=== PATIENT | female | born 1975 | race Caucasian/White ===

== ENCOUNTER 2022-01-08 21:44 | Inpatient (IN) | payer BC ==
[~2022-01-08] VITALS: Ht 167 cm; Wt 86.0 kg
[2022-01-08 22:38] LABS: BILIRUBIN,URINE NEGATIVE (NEGATIVE); CLARITY,URINE CLEAR; COLOR,URINE YELLOW; GLUCOSE, URINE (UA) NEGATIVE (NEGATIVE); KETONES,URINE NEGATIVE (NEGATIVE); LEUKOCYTE ESTERASE ,URINE NEGATIVE (NEGATIVE); NITRITE,URINE NEGATIVE (NEGATIVE); PROTEIN,URINE TRACE (NEGATIVE)
[2022-01-08 22:45] LABS: BACTERIA,URINE FEW /HPF
[2022-01-08] MEDS ORDERED: FAMOTIDINE 20MG/2ML IV (PEPCID) IVP ONE (23:30)
[2022-01-08] MEDS ORDERED: ONDANSETRON 4 MG/2 ML (SDV) Z0FRAN IVP ONE (23:30)
[2022-01-08] MEDS ORDERED: LACTATED RINGERS 1,000 ML IV ONE (23:30)
[2022-01-08] MEDS ORDERED: ANTACID SUSP 30 ML UDC (MYLANTA) PO ONE (23:30)
[2022-01-08] MEDS ORDERED: LIDOCAINE 2% VISCOUS 15 ML UDC PO ONE (23:30)
[2022-01-09] VITALS (15 sets, daily range): BP systolic 115–163; BP diastolic 66–95
[2022-01-09] MEDS ORDERED: fentaNYL INJ 100 MCG/2 ML AMP IVP ONE ×2 (00:30→02:45)
[2022-01-09 01:04] LABS: BASOPHILS % (AUTO) 0 % (0-10); EOSINOPHILS % (AUTO) 0 % (0-10); HEMATOCRIT 32 % (35-52); HEMOGLOBIN 11.1 g/dL (11.5-16.0); LYMPHOCYTES # (AUTO) 1.1 10^3/uL (1.0-4.0); LYMPHOCYTES % (AUTO) 8 % (12-44); MEAN CORPUSCULAR HEMOGLOBIN 31 pg (25-34); MEAN CORPUSCULAR HGB CONC 35 g/dL (32-36); MEAN CORPUSCULAR VOLUME 90 fL (80-99); MONOCYTES # (AUTO) 0.4 10^3/uL (0.0-1.0); MONOCYTES % (AUTO) 3 % (0-12); NEUTROPHILS # (AUTO) 11.5 10^3/uL (1.8-7.8); NEUTROPHILS % (AUTO) 88 % (42-75); PLATELET COUNT 272 10^3/uL (130-400)
[2022-01-09 01:17] LABS: POTASSIUM 4.3 MMOL/L (3.6-5.0)
[2022-01-09 01:19] LABS: CALCIUM 8.8 MG/DL (8.5-10.1)
[2022-01-09 01:20] LABS: TOTAL PROTEIN 6.6 GM/DL (6.4-8.2)
[2022-01-09 01:22] LABS: BILIRUBIN,TOTAL 1.4 MG/DL (0.1-1.0)
[2022-01-09 01:23] LABS: CREATININE SERUM 0.96 MG/DL (0.60-1.30)
[2022-01-09] MEDS ORDERED: HOLD METFORMIN - RECEIVED CONTRAST 20 ML VIAL IV SCH (01:45)
[2022-01-09] MEDS ORDERED: NS 100 ML (IVPB) BAG IV ONE (01:45)
[2022-01-09] MEDS ORDERED: CATHETER FLUSH 10 ML SYR IV PRN (01:45)
[2022-01-09] MEDS ORDERED: IOHEXOL 350 MG/ML 100 ML (OMNIPAQUE 350) VIAL IV ONE (01:45)
--- NOTE | 2022-01-09 03:18 | ED Abdominal Pain ---
General Chief Complaint: Abdominal/GI Problems Stated Complaint: ABD PAIN Nursing Triage Note: Pt to ER with chief complaint of medial abdominal pain. Pt reports that 2 hours ago she suddenly began having abdominal pain and "nothing makes it better". Pt also reports that she has thrown up 4 times from the pain and states this has happened before 2 times previously and it was gas both times. Source of Information: Patient Exam Limitations: No Limitations History of Present Illness Date Seen by Provider: January 08, 2022 Time Seen by Provider: 21:50 Initial Comments This 46-year-old young lady presents to the emergency room with upper abdominal pain, nausea and vomiting. She is somewhat in distress on evaluation. She has had 3 episodes of similar symptoms in the past but, but this is the most severe episode. Symptoms seem to start about an hour after eating. She denies any urinary problems. Allergies and Home Medications Allergies Coded Allergies: cefprozil (Verified Allergy, Unknown, 01/08/22) Patient Home Medication List Home Medication List Reviewed: Yes Review of Systems Review of Systems Constitutional: no symptoms reported EENTM: No Symptoms Reported Respiratory: No Symptoms Reported Cardiovascular: No Symptoms Reported Gastrointestinal: See HPI Genitourinary: No Symptoms Reported Musculoskeletal: no symptoms reported Skin: no symptoms reported Psychiatric/Neurological: No Symptoms Reported Endocrine: No Symptoms Reported Past Xgkvkbz-[id number]-Ufdpds Hx Patient Social History Tobacco Use?: No Smoking Status: Never a Smoker Smokeless Tobacco Frequency: Never a User Use of E-Cig and/or Vaping dev: No Use of E-Cig and/or Vaping Prosper: Never a User Substance use?: No Alcohol Use?: No Pt feels they are or have been: No Immunizations Up To Date Influenza Vaccine Up-to-Date: No; Not Current Past Medical History Surgery/Hospitalization HX: bladder enlargement Surgeries: No Respiratory: No Cardiac: No Neurological: No : No Last Menstrual Period: Dec 11, 2021 Genitourinary: No Gastrointestinal: No Musculoskeletal: No Endocrine: No HEENT: No Cancer: No Psychosocial: No Physical Exam Vital Signs Vital Signs - First Documented 01/08/22 22:19 Temp 37.1 Pulse 70 Resp 20 B/P (MAP) 146/72 (96) Pulse Ox 98 O2 Delivery Room Air Capillary Refill : Less Than 3 Seconds Height/Weight/BMI Height: '" Weight: lbs. oz. kg; 27.00 BMI Method: General Appearance: WD/WN, moderate distress HEENT: PERRL/EOMI, normal ENT inspection Neck: normal inspection Respiratory: lungs clear, normal breath sounds, no respiratory distress Cardiovascular: regular rate, rhythm, no edema, no murmur Gastrointestinal: normal bowel sounds, soft, tenderness (Tenderness throughout the upper abdomen and most intense in the epigastrium) Extremities: normal inspection, no pedal edema Neurologic/Psychiatric: no motor/sensory deficits, alert, normal mood/affect, oriented x 3 Skin: normal color, warm/dry Progress/Results/Core Measures Results/Orders Lab Results Laboratory Tests Test 01/08/22 22:30 01/09/22 01:00 Range/Units Urine Color YELLOW Urine Clarity CLEAR Urine pH 8.0 5-9 Urine Specific [place] 1.015 L 1.016-1.022 Urine Protein TRACE H NEGATIVE Urine Glucose (UA) NEGATIVE NEGATIVE Urine Ketones NEGATIVE NEGATIVE Urine Nitrite NEGATIVE NEGATIVE Urine Bilirubin NEGATIVE NEGATIVE Urine Urobilinogen 1.0 < = 1.0 MG/DL Urine Leukocyte Esterase NEGATIVE NEGATIVE Urine RBC (Auto) 2+ H NEGATIVE Urine RBC 10-25 H /HPF Urine WBC 5-10 H /HPF Urine Squamous Epithelial Cells 5-10 /HPF Urine Renal Epithelial Cells NONE /HPF Urine Crystals NONE /LPF Urine Bacteria FEW H /HPF Urine Casts NONE /LPF Urine Mucus SMALL H /LPF Urine Culture Indicated YES White Blood Count 13.0 H 4.3-11.0 10^3/uL Red Blood Count 3.55 L 3.80-5.11 10^6/uL Hemoglobin 11.1 L 11.5-16.0 g/dL Hematocrit 32 L 35-52 % Mean Corpuscular Volume 90 80-99 fL Mean Corpuscular Hemoglobin 31 25-34 pg Mean Corpuscular Hemoglobin Concent 35 32-36 g/dL Red Cell Distribution Width 12.9 10.0-14.5 % Platelet Count 272 130-400 10^3/uL Mean Platelet Volume 9.0 9.0-12.2 fL Immature Granulocyte % (Auto) 0 % Neutrophils (%) (Auto) 88 H 42-75 % Lymphocytes (%) (Auto) 8 L 12-44 % Monocytes (%) (Auto) 3 0-12 % Eosinophils (%) (Auto) 0 0-10 % Basophils (%) (Auto) 0 0-10 % Neutrophils # (Auto) 11.5 H 1.8-7.8 10^3/uL Lymphocytes # (Auto) 1.1 1.0-4.0 10^3/uL Monocytes # (Auto) 0.4 0.0-1.0 10^3/uL Eosinophils # (Auto) 0.0 0.0-0.3 10^3/uL Basophils # (Auto) 0.0 0.0-0.1 10^3/uL Immature Granulocyte # (Auto) 0.1 0.0-0.1 10^3/uL Sodium Level 136 135-145 MMOL/L Potassium Level 4.3 3.6-5.0 MMOL/L Chloride Level 104 98-107 MMOL/L Carbon Dioxide Level 19 L 21-32 MMOL/L Anion Gap 13 5-14 MMOL/L Blood Urea Nitrogen 8 7-18 MG/DL Creatinine 0.96 0.60-1.30 MG/DL Estimat Glomerular Filtration Rate 73 BUN/Creatinine Ratio 8 Glucose Level 137 H 70-105 MG/DL Calcium Level 8.8 8.5-10.1 MG/DL Corrected Calcium 8.8 8.5-10.1 MG/DL Total Bilirubin 1.4 H 0.1-1.0 MG/DL Aspartate Amino Transf (AST/SGOT) 228 H 5-34 U/L Alanine Aminotransferase (ALT/SGPT) 138 H 0-55 U/L Alkaline Phosphatase 75 40-136 U/L C-Reactive Protein High Sensitivity 0.26 0.00-0.50 MG/DL Total Protein 6.6 6.4-8.2 GM/DL Albumin 4.0 3.2-4.5 GM/DL Lipase 20 8-78 U/L My Orders Orders - RONY NEWBERRY MD Ua Culture If Indicated (01/08/22 21:50) Urine Culture (01/08/22 22:30) Ondansetron Injection (Zofran Injectio (01/08/22 23:30) Cbc With Automated Diff (01/08/22 23:24) Comprehensive Metabolic Panel (01/08/22 23:24) Lipase (01/08/22 23:24) Ed Iv/Invasive Line Start (01/08/22 23:24) Lactated Ringers (Lr 1000 Ml Iv Solution (01/08/22 23:30) Lidocaine 2% Viscous 15 Ml (Xylocaine Vi (01/08/22 23:30) Antacid Suspension (Mylanta Suspension (01/08/22 23:30) Famotidine Injection (Pepcid Injection) (01/08/22 23:30) Hs C Reactive Protein (01/09/22 00:20) Fentanyl Inj (Sublimaze Injection) (01/09/22 00:30) Ct Abdomen/Pelvis W (01/09/22 01:29) Iohexol Injection (Omnipaque 350 Mg/Ml 1 (01/09/22 01:45) Received Contrast (Hold Metformin- Contr (01/09/22 01:45) Sodium Chloride Flush (Catheter Flush Sy (01/09/22 01:45) Ns (Ivpb) (Sodium Chloride 0.9% Ivpb Bag (01/09/22 01:45) Fentanyl Inj (Sublimaze Injection) (01/09/22 02:45) Ciprofloxacin Iv 400mg/200ml (Cipro Iv S (01/09/22 03:30) Medications Given in ED Current Medications Medications Dose Ordered Sig/Deandra Route Start Time Stop Time Status Last Admin Dose Admin Al Hydrox/Mg Hydrox/Simethicone 30 ml ONCE ONCE PO 01/08/22 23:30 01/08/22 23:31 DC 01/08/22 23:48 30 ML Famotidine 20 mg ONCE ONCE IVP 01/08/22 23:30 01/08/22 23:31 DC 01/08/22 23:47 20 MG Fentanyl Citrate 50 mcg ONCE ONCE IVP 01/09/22 00:30 01/09/22 00:31 DC 01/09/22 00:51 50 MCG Fentanyl Citrate 50 mcg ONCE ONCE IVP 01/09/22 02:45 01/09/22 02:46 DC 01/09/22 02:54 50 MCG Iohexol 100 ml ONCE ONCE IV 01/09/22 01:45 01/09/22 01:46 DC 01/09/22 01:49 97 ML Lactated Ringer's 1,000 ml @ 0 mls/hr Q0M ONCE IV 01/08/22 23:30 01/08/22 23:31 DC 01/08/22 23:47 1,000 MLS/HR Lidocaine HCl 15 ml ONCE ONCE PO 01/08/22 23:30 01/08/22 23:31 DC 01/08/22 23:48 15 ML Ondansetron HCl 8 mg ONCE ONCE IVP 01/08/22 23:30 01/08/22 23:31 DC 01/08/22 23:47 8 MG Sodium Chloride 10 ml NEEDED PRN IV 01/09/22 01:45 01/09/22 01:49 10 ML Sodium Chloride 100 ml ONCE ONCE IV 01/09/22 01:45 01/09/22 01:46 DC 01/09/22 01:49 80 ML Vital Signs/I&O 01/08/22 22:19 Temp 37.1 Pulse 70 Resp 20 B/P (MAP) 146/72 (96) Pulse Ox 98 O2 Delivery Room Air Blood Pressure Mean: 96 Progress Progress Note : Progress Note Patient was treated with Zofran and a liter of LR. Pain was treated with GI cocktail. There is no improvement after GI cocktail. Pain was further treated with fentanyl. Mild leukocytosis was noted. Risks and benefits of CT scan were reviewed with the patient. She elected to proceed with a CT scan which d emonstrated cholelithiasis and possible inflammatory changes to the colon. Based on symptom presentation, she likely is suffering from biliary colic. Urinary tract infection was also identified by urinalysis. Case was discussed with Dr. Thorne. Given the severity of her symptoms and recurrent nature, admission for surgery was deemed most appropriate. Patient elects to proceed with admission and surgery later today. She was treated with Cipro in the ER. Further treatment with Cipro and Flagyl will be ordered on admission. Diagnostic Imaging Diagonstic Imaging: CT Plain Films/CT/US/NM/MRI: abdomen, pelvis Comments CT abdomen and pelvis with contrast viewed by me and stat rad report reviewed. There is a dilated gallbladder with cholelithiasis evident. Questionable inflammatory changes to the colon. See report for details. Departure Communication (Admissions) Time/Spoke to Admitting Phy: 03:05 Dr. Thorne Impression Primary Impression: Cholelithiasis Qualified Codes: K80.20 - Calculus of gallbladder without cholecystitis without obstruction Additional Impressions: Upper abdominal pain Urinary tract infection Qualified Codes: N39.0 - Urinary tract infection, site not specified; R31.9 - Hematuria, unspecified Nausea & vomiting Qualified Codes: R11.2 - Nausea with vomiting, unspecified Elevated liver transaminase level Disposition: ADMITTED INPATIENT Condition: Improved Admissions Decision to Admit Reason: Admit from ER (General) Decision to Admit/Date: January 09, 2022 Time/Decision to Admit Time: 03:05 Departure-Patient Inst. Referrals: JESSIE BAILEY DO (PCP/Family) Primary Care Physician Copy Copies To 1: JESSIE BAILEY JOSHUA T MD January 09, 2022 03:18
[2022-01-09] MEDS ORDERED: CIPROFLOXACIN IV 400MG/200ML 200 ML IV ONE (03:30)
[2022-01-09] MEDS ORDERED: ONDANSETRON 4 MG/2 ML (SDV) Z0FRAN IV PRN (04:45)
[2022-01-09] MEDS ORDERED: morphine INJ 4 MG/ML 1 ML (VIAL/SYRINGE) IV PRN (04:45)
[2022-01-09] MEDS ORDERED: metroNIDAZOLE 500 MG/100 ML IVPB (PRE-MIX) IV SCH (05:00)
[2022-01-09] MEDS: fentaNYL INJ 100 MCG/2 ML AMP IV PRN ×2 (05:15→15:44)
[2022-01-09] MEDS: LACTATED RINGERS 1,000 ML IV SCH ×2 (05:15→12:41)
--- NOTE | 2022-01-09 06:11 | Diagnostic Imaging Report ---
PROCEDURE: CT abdomen and pelvis with contrast. TECHNIQUE: Multiple contiguous axial images were obtained through the abdomen and pelvis after administration of intravenous contrast. Auto Exposure Controls were utilized during the CT exam to meet ALARA standards for radiation dose reduction. All CT scans use one or more of the following dose optimizing techniques: automated exposure control, MA and/or KvP adjustment based on patient size and exam type or iterative reconstruction. INDICATION: Abdominal pain, elevated liver enzymes and leukocytosis. FINDINGS: The heart size is normal. The lung bases are clear. The liver is normal in size without focal lesions. There is no biliary ductal dilatation. There is cholelithiasis. Spleen is normal. Pancreas and adrenal glands are unremarkable. There is a tiny nonobstructing right renal calculus. Left kidney is normal. The aorta is nonaneurysmal. Bowel gas pattern is nonspecific. There is mucosal thickening in the transverse colon, descending colon and sigmoid colon. There is no free air. There is no ascites. There are no focal inflammatory changes. The osseous structures are unremarkable. IMPRESSION: Mucosal thickening of the transverse colon, descending colon and sigmoid colon. This may be due to underdistention although colitis cannot be excluded. Recommend clinical correlation. Cholelithiasis without gross findings to suggest cholecystitis. Small hiatal hernia. 2 mm nonobstructing right renal calculus. Dictated by: Dictated on workstation # [id number]
--- NOTE | 2022-01-09 07:56 | History & Physical-Surgical ---
History of Present Illness History of Present Illness Reason for visit/HPI CC: epigastric pain. 46 year old female with epigastric pain started 7 pm last night. sever pain. Having nausea and emesis. Has had 2 different prior episodes. Since worse and constants since started this time came to ed to be further evaluated. Ct scan showing cholelithiasis, has thickening of some of transverse and left colon likely underdistention. Date of Admission January 09, 2022 at 03:21 Date Seen by a Provider: January 09, 2022 Time Seen by a Provider: 07:53 I consulted on this patient on 01/09/22 07:50 Attending Physician Marlin Thorne DO Admitting Physician Stefanie Stone DO Consult Allergies and Home Medications Allergies Coded Allergies: cefprozil (Verified Allergy, Unknown, 01/08/22) Patient Home Medication List Home Medication List Reviewed: Yes Past Rbwiwkt-Ihqcvs-Tciyfw Hx Patient Social History Smoking Status: Never a Smoker Alcohol Use?: No Have you traveled recently?: No Surgeries History of Surgeries: No Respiratory History of Respiratory Disorde: No Cardiovascular History of Cardiac Disorders: No Neurological History of Neurological Disord: No Reproductive System : No Genitourinary History of Genitourinary Disor: No Gastrointestinal History of Gastrointestinal Di: No Musculoskeletal History of Musculoskeletal Dis: No Endocrine History of Endocrine Disorders: No HEENT History of HEENT Disorders: No Cancer History of Cancer: No Psychosocial History of Psychiatric Problem: No Reviewed Nursing Assessment Reviewed/Agree w Nursing PMH: Yes Family Medical History Significant Family History: No Pertinent Family Hx Review of Systems Constitutional: No chills, No diaphoresis EENTM: No blurred vision, No double vision Respiratory: No cough, No dyspnea on exertion Cardiovascular: No chest pain, No palpitations Gastrointestinal: abdominal pain, nausea, vomiting Genitourinary: No decreased output, No discharge Skin: No change in color, No change in hair/nails Psychiatric/Neurological: Denies Anxiety, Denies Depressed, Denies Emotional Problems All Other Systems Reviewed Negative Unless Noted: Yes (Negative excepted noted.) Physical Exam Vital Signs Vital Signs - First Documented 01/08/22 22:19 Temp 37.1 Pulse 70 Resp 20 B/P (MAP) 146/72 (96) Pulse Ox 98 O2 Delivery Room Air Capillary Refill : Less Than 3 Seconds Height, Weight, BMI Height: '" Weight: lbs. oz. kg; 30.83 BMI Method: General Appearance: No Apparent Distress, WD/WN HEENT: PERRL/EOMI, Normal ENT Inspection Neck: Normal Inspection, Non Tender Respiratory: Chest Non Tender, No Accessory Muscle Use, No Respiratory Distress Cardiovascular: Regular Rate, Rhythm, No JVD Gastrointestinal: No Organomegaly, Soft, Tenderness (epigastric area) Rectal: Deferred Back: Normal Inspection, No Vertebral Tenderness Extremity: Normal Inspection, Normal Range of Motion Neurologic/Psychiatric: Alert, Oriented x3 Skin: Normal Color, Warm/Dry Lymphatic: No Adenopathy Data Review Labs Laboratory Tests 01/08/22 22:30: Urine Color YELLOW, Urine Clarity CLEAR, Urine pH 8.0, Urine Specific [place] 1.015L, Urine Protein TRACEH, Urine Glucose (UA) NEGATIVE, Urine Ketones NEGATIVE, Urine Nitrite NEGATIVE, Urine Bilirubin NEGATIVE, Urine Urobilinogen 1.0, Urine Leukocyte Esterase NEGATIVE, Urine RBC (Auto) 2+H, Urine RBC 10-25H, Urine WBC 5-10H, Urine Squamous Epithelial Cells 5-10, Urine Renal Epithelial Cells NONE, Urine Crystals NONE, Urine Bacteria FEWH, Urine Casts NONE, Urine Mucus SMALLH, Urine Culture Indicated YES 01/09/22 01:00: White Blood Count 13.0H, Red Blood Count 3.55L, Hemoglobin 11.1L, Hematocrit 32L , Mean Corpuscular Volume 90, Mean Corpuscular Hemoglobin 31, Mean Corpuscular Hemoglobin Concent 35, Red Cell Distribution Width 12.9, Platelet Count 272, Mean Platelet Volume 9.0, Immature Granulocyte % (Auto) 0, Neutrophils (%) (Auto) 88H, Lymphocytes (%) (Auto) 8L, Monocytes (%) (Auto) 3, Eosinophils (%) (Auto) 0, Basophils (%) (Auto) 0, Neutrophils # (Auto) 11.5H, Lymphocytes # (Auto) 1.1, Monocytes # (Auto) 0.4, Eosinophils # (Auto) 0.0, Basophils # (Auto) 0.0, Immature Granulocyte # (Auto) 0.1, Sodium Level 136, Potassium Level 4.3, Chloride Level 104, Carbon Dioxide Level 19L, Anion Gap 13, Blood Urea Nitrogen 8, Creatinine 0.96, Estimat Glomerular Filtration Rate 73, BUN/Creatinine Ratio 8, Glucose Level 137H, Calcium Level 8.8, Corrected Calcium 8.8, Total Bilirubin 1.4H, Aspartate Amino Transf (AST/SGOT) 228H, Alanine Aminotransferase (ALT/SGPT) 138H, Alkaline Phosphatase 75, C-Reactive Protein High Sensitivity 0.26, Total Protein 6.6, Albumin 4.0, Lipase 20 01/09/22 04:20: Influenza Type A (RT-PCR) Not Detected, Influenza Type B (RT-PCR) Not Detected, SARS-CoV-2 RNA (RT-PCR) Not Detected Assessment/Plan Assessment/Plan Admission Diagonsis epigastric abd pain nausea and vomiting cholelithiasis UTI abnormal ct Admission Status: Observation Assessment/Plan epigastric abd pain nausea and vomiting cholelithiasis UTI abnormal ct patient admitted for observation discussed risks and benefits of laparoscopic cholecystectomy with intraoperative cholangiogram all other indicated procedures. She understands and wishes to proceed. To or today. NPO IV hydration Cipro/MARLIN Gurrola DO January 09, 2022 07:56
[2022-01-09] MEDS ORDERED: ESCI-2 PO (08:41)
[2022-01-09] MEDS ORDERED: CETI10TA17 PO (08:41)
[2022-01-09] MEDS ORDERED: LIDOCAINE/EPI 2% 1:100,00 (XYLOCAINE) 20 ML VIAL ONE (10:44)
[2022-01-09] MEDS ORDERED: GLYCOPYRROLATE 0.2 MG/ML (ROBINUL) 2 ML VIAL ONE (11:44)
[2022-01-09] MEDS ORDERED: ROCURONIUM 50 MG/5 ML (ZEMURON) VIAL IV ONE (11:44)
[2022-01-09] MEDS ORDERED: fentaNYL INJ 100 MCG/2 ML AMP ONE ×2 (11:44→13:09)
[2022-01-09] MEDS ORDERED: proPOfol 200 MG/20 ML (DIPRIVAN) VIAL IV ONE (11:44)
[2022-01-09] MEDS ORDERED: LIDOCAINE PF 2% 5 ML (XYLOCAINE) VIAL ONE (11:44)
[2022-01-09] MEDS ORDERED: NEOSTIGMINE 3 MG/3 ML VIAL ONE (11:44)
[2022-01-09] MEDS ORDERED: MIDAZOLAM 2 MG/2 ML (VERSED) VIAL ONE (11:44)
[2022-01-09] MEDS ORDERED: ONDANSETRON 4 MG/2 ML (SDV) Z0FRAN ONE (11:44)
[2022-01-09] MEDS ORDERED: LACTATED RINGERS 1,000 ML IV PRN (11:45)
[2022-01-09] MEDS ORDERED: GLUCAGON EMERGENCY 1 MG/KIT ONE (12:32)
[2022-01-09] MEDS ORDERED: HYDROmorphone 2 MG/ML VIAL (DILAUDID) IV ONE (13:30)
[2022-01-09] MEDS ORDERED: morphine INJ 10 MG/ML 1ML (SYR OR VIAL) IVP ONE (13:30)
[2022-01-09] MEDS ORDERED: ONDANSETRON 4 MG/2 ML (SDV) Z0FRAN IVP PRN (13:30)
[2022-01-09] MEDS ORDERED: SEVOFLURANE (ULTANE) 15 ML INHAL SOLN ONE (13:35)
--- NOTE | 2022-01-09 13:42 | Anesthesia-General Post-Op ---
General Patient Condition Mental Status/LOC: Same as Preop Cardiovascular: Satisfactory Nausea/Vomiting: Absent Respiratory: Satisfactory Pain: Controlled Complications: Absent Post Op Complications Complications None Follow Up Care/Instructions Patient Instructions None needed. Anesthesia/Patient Condition Patient Condition Patient is doing well, C/O some abdominal pain which is to be expected, stable vital signs, no apparent adverse anesthesia problems. UZIEL CHEUNG DO January 09, 2022 13:41
--- NOTE | 2022-01-09 15:34 | Diagnostic Imaging Report ---
INDICATION: Fluoroscopy during intraoperative cholangiogram. FINDINGS: Fluoroscopy was provided in the OR during intraoperative cholangiogram. 60 seconds of fluoroscopic time was utilized. 290 images were obtained. Images demonstrate contrast being injected via the cystic duct remnant. Intrahepatic and extrahepatic bile ducts are opacified. No filling defects are seen to suggest retained stone. Contrast passes into the duodenum. IMPRESSION: Fluoroscopy for intraoperative cholangiogram. Dictated by: Dictated on workstation # [id number]
[2022-01-09] MEDS ORDERED: DOCU-143 PO (17:10)
[2022-01-09] MEDS ORDERED: ACHD5005 PO (17:10)
--- NOTE | 2022-01-09 17:17 | Discharge Inst-Simple/Standard ---
Discharge Inst-Standard Discharge Medications New, Converted or Re-Newed RX: Transmitted to Pharmacy Patient Instructions/Follow Up Plan of Care/Instructions/FU: 2 weeks Mati. Nothing to eat or drink after midnight. You have to be at [facility] for Dr. Muniz for ERCP tomorrow morning. (01/10/22) Activity as Tolerated: No Discharge Diet: Liquid Diet (nothing to drink after midnight.) Other Inst to Patient Follow up Appt: Make appointment for 2 weeks. Nothing to eat or drink after midnight. You have to be at [facility] for for ERCP tomorrow morning. Instructions: No lifting greater than 10 pounds. No strenuous activity. May shower in 24 hours, no tub bath or soaking. Use incentive spirometer at home as directed. No Smoking Skin/Wound Care: You have special glue over incision, it will fall off on it's own. Symptoms to Report: Appetite Changes, Extremity Discoloration, Numbness/Tingling, Swelling Inc reased, Bleeding Excessive, Eyesight Changes, Pain Increased, Urine Color Change, Constipation(Persistent), Fever over 101 degree F, Pain/Pressure in chest, Urinating Difficulty, Cough Up/Vomit Blood, Heart Beat Irreg/Pounding, Pain/Pressure in jaw, Vaginal Bleeding Increase, Cramps in feet or legs, Lightheadedness, Pain/Pressure in shoulder, Diarrhea(Persistent), Memory Changes Suddenly, Questions/Concerns, Weight gain consecutive days, Dizziness/Fainting, Nausea/Vomiting, Shortness of Breath, Weight gain over 2 pounds. If eyes or skin turn yellow notify physician. If questions or concerns contact your physician Or seek help at emergency department. MARLIN MANTILLA DO January 09, 2022 17:16
[2022-01-09] MEDS ORDERED: CIPROFLOXACIN 400 MG/D5W 200 ML (PRE-MIX) IV SCH (18:00)
--- NOTE | 2022-01-10 11:20 | OPERATIVE REPORT ---
DATE OF SERVICE: 01/09/2022 PREOPERATIVE DIAGNOSIS: Symptomatic cholelithiasis. POSTOPERATIVE DIAGNOSES: Symptomatic cholelithiasis and common bile duct obstruction. PROCEDURES PERFORMED: Laparoscopic cholecystectomy with intraoperative cholangiogram and transcystic duct, common bile duct exploration. SURGEON: Marlin Thorne DO. BAG SHAKER: Dr. Smith, assisted in retraction, dissection and closure, identification of anatomy. INDICATIONS FOR PROCEDURE: The patient is a 46-year-old female, who presented to the hospital with symptoms of epigastric abdominal pain, nausea, and vomiting. She had workup, which was consistent with symptomatic cholelithiasis. She understands the risks and benefits of the procedure and wished to proceed. Consent was signed in the chart. DESCRIPTION OF PROCEDURE: The patient was taken to the operating suite. She was prepped and draped in the sterile fashion. Surgical pause was performed. Local anesthetic was infiltrated before incisions. A 12 mm incision was made at the umbilicus. Cautery was used to dissect down through the subcutaneous tissues, fascia was encountered, which was then scored, grasped, elevated and the abdomen was then entered. A 0 Vicryl was placed in a [id number] fashion for closure at the end of the case. A moody balloon trocar was inserted and pneumoperitoneum was achieved. Under direct visualization of the laparoscope, a 5 mm trocar was placed in the subxiphoid region and two 5 mm trocars were placed in the right upper quadrant. The gallbladder had slight edematous appearance. It was grasped, elevated at the cystic duct. There was an anterior cystic artery that was dissected off. Clips were placed on the proximal and distal portion. This was transected. The cystic duct and the artery was present, which were both dissected out. Clips were placed on the proximal and distal portion of the artery. A clip was placed on the distal portion of the cystic duct. The duct was then partially transected. Arrow catheter was inserted into the cystic duct and cholangiogram was performed. There was obstruction of the distal common bile duct not allowing contrast to go into the duodenum. Glucagon was given without success; contrast still did not make it into it. A balloon catheter was then inserted into the cystic duct down the common bile duct and the common bile duct was then swept multiple times removing some debris from the common bile duct. A repeat cholangiogram demonstrated contrast into the duodenum the appearance of a larger stone in the distal common bile duct. Despite multiple attempts, this was unable to be removed. At this point, catheter was removed and a clip was placed on the proximal portion of the cystic duct, which was then transected along with the artery. Hook cautery was used to dissect the gallbladder from the gallbladder fossa achieving hemostasis. Once removed, the gallbladder was placed in an Endobag and removed through a 12 mm trocar site. The 0 Vicryl placed at the beginning of the case was then closed and the skin was then closed using 4-0 Monocryl in a subcuticular fashion and Skin Affix was placed over the incisions after wash and dried. The patient tolerated the procedure well without any complications. She was taken to recovery room in a stable condition. RECOMMENDATIONS: The patient will be set up for an ERCP. Arrangements have been made with . Job ID: [id number] DocumentID: [id number] Dictated Date: 01/10/2022 09:27:17 Diesel Dinkey Operator Date: 01/10/2022 11:19:43 Dictated By: MARLIN THORNE DO
== END 2022-01-09 18:11 | disposition home or self-care (01) | DRG 418 ==
LOC: EDUNIT# 21:44 → ER 21:47 → 4TH 01-09 03:21
PROVIDERS: ADMIT Surgery; ATTEND Surgery
PROC: BF131ZZ Fluoroscopy of Gallbladder and Bile Ducts using Low Osmolar Contrast (ICD-10-PCS; 2022-01-09)
PROC: 0FT44ZZ Resection of Gallbladder, Percutaneous Endoscopic Approach (ICD-10-PCS; principal; 2022-01-09 11:58)
DX: K80.21 Calculus of gallbladder without cholecystitis with obstruction (principal); N39.0 Urinary tract infection, site not specified; R11.2 Nausea with vomiting, unspecified; Z20.822 Contact with and (suspected) exposure to COVID-19
CPT/HCPCS: 36415; 74177; 76000; 80053; 81000; 83690; 85025; 86141; 87081; 87088; 87636; 88304